=== PATIENT | male | born 1985 | race Caucasian/White ===

== ENCOUNTER 2017-10-22 09:11 | Emergency (ER) | payer MEDICAID | END 2017-10-22 11:48 | disposition home or self-care (01) | LOC: D.ER 09:11 | DX: S60.021A Contusion of right index finger without damage to nail, initial encounter (principal); W22.8XXA Striking against or struck by other objects, initial encounter; Y93.89 Activity, other specified; Y92.019 Unspecified place in single-family (private) house as the place of occurrence of the external cause; M67.441 Ganglion, right hand; F17.200 Nicotine dependence, unspecified, uncomplicated ==